=== PATIENT | female | born 1950 | race Caucasian/White ===

== ENCOUNTER 2022-04-09 12:10 | Outpatient (CLI) | payer MEDICARE, SELFPAY ==
--- NOTE | 2022-04-09 14:28 | W.ANESCHARGE ---
Anesthesia Charges Start Date/Time Anesthesia Start Date: 04/09/22 Anesthesia Start Time: 13:40 Stop Date/Time Anesthesia Stop Date: 04/09/22 Anesthesia Stop Time: 14:25 Summary Emergency: No Extremes of Age: Over 70-CPT 54347
--- NOTE | 2022-04-09 14:32 | W.ANESCHARGE ---
Anesthesia Charges Start Date/Time Anesthesia Start Date: 04/09/22 Anesthesia Start Time: 13:40 Stop Date/Time Anesthesia Stop Date: 04/09/22 Anesthesia Stop Time: 14:25 Summary Emergency: No Extremes of Age: Over 70-CPT 60679
== END 2022-04-09 12:11 | disposition home or self-care (01) ==
PROVIDERS: PCP Family Medicine; Visit Provider Surgery
DX: Z86.010 Personal history of colon polyps (principal); K63.5 Polyp of colon; K62.1 Rectal polyp; D17.5 Benign lipomatous neoplasm of intra-abdominal organs
CPT/HCPCS: 00811; 45385; 88305; 99100; J1200; J2250; J3010

== ENCOUNTER 2024-06-15 13:54 | Outpatient (CLI) | payer MEDICARE, SELFPAY ==
--- OUTSIDE RECORDS SUMMARY | 2024-06-15 14:00 | XMS_ITS | Clinical Summary ---
Author Organization [employer] [facility] Address [place], [place] [address] Care Team Providers Care Profiling Machine Set Up Operator Tool Name Role Phone Ger Escobar MD Primary Care Provider [phone] Active Problems Problem Noted Date Diagnosed Date Adenomatous colon polyp 02/02/2019 Overview (02/02/2019): Colonoscopy 01/2019 large cecal polyp, large ascending colon polyp unresectable by colonoscopy, biopsies show serrated adenoma recommend surgical resection of polyps. Patient will contact [facility] for general surgery referral, repeat colonoscopy to be determined by surgery after surgical excision of polyps. Social History Tobacco Use Types Packs/Day Years Used Date Smoking Tobacco: Never Assessed Sex and Gender Information Value Date Recorded Sex Assigned at Not on file Gender Identity Not on file Sexual Orientation Not on file Obstetrics History Plan of Treatment Health Maintenance Due Date Last Done Comments Tdap 1962 Depression screening for age 12+ 1963 BMI (ht and wt on same day) for age 18+ 1969 Hepatitis C screening for ag e 18-79 1969 Tetanus booster 1971 Lipids for age 45-75 01/09/1996 Mammogram for age 45-75 01/09/1996 Zoster (shingles) series for age 50+ (1 of 2) 2001 DEXA/DXA scan for age 65+ 01/09/2016 Medicare Wellness for age 65+ 01/09/2016 Pneumococcal series for age 65+ (1 of 1 - PCV) 01/09/2016 COVID-19 vaccine series (1 - 2023- season) 2024 Influenza for age 65+ 04/16/2024 Colonoscopy through age 75 01/30/202901/30, 01/30/2019, 01/30/2019, Additional history exists Procedures Procedure Name Priority Date/Time Associated Diagnosis Comments COLONOSCOPY SCREENING Routine 01/30/2019 12:00 PM CDT Positive colorectal cancer screening using Cologuard test from Last 3 Months or Most Recently Relevant to Health Maintenance Results * COLONOSCOPY SCREENING (01/30/2019 12:00 PM CDT) Jon Watson MD GI PROCEDURE ORD from Last 3 Months or Most Recently Relevant to Health Maintenance Care Teams Profiling Machine Set Up Operator Tool Relationship Specialty Start Date End Date Ger Escobar MD [address] [place] [address] PCP - General Family Practice 01/12/19
--- OUTSIDE RECORDS SUMMARY | 2024-06-15 14:00 | XMS_ITS | Clinical Summary ---
Author Organization [facility] Address [address] [place] [address] Care Team Providers Care Pv Design And Installation Technician Name Role Phone Ger Escobar MD Primary Care Provider Allergies No known active allergies Medications No known medications Active Problems Problem Noted Date Diagnosed Date Elevated glucose 03/23/2022 Other irritable bowel syndrome 03/23/2022 Mixed hyperlipidemia 03/23/2022 Tubular adenoma of colon 03/17/2022 Immunizations Name Administration Dates Next Due Pneumococcal Conj Vac, 13-valent (Prevnar) 11/23 Pneumococcal Vac, 23-valent, IM-SQ (Pneumovax) 0 01/22/2020 SARS-CoV-2, IM (COVID-19)(Pfizer)(Purple Label) 11/13/2020,10/22/2020 Tdap Vaccine, IM, (Adacel)(Boostrix) 11/03/2018 Family History Medical History Relation Name Comments Colon Cancer Father Possible colon but unsure and onset in 70's but unsure Thyroid Disease Mother Relation Name Status Comments Father Mother Social History Tobacco Use Types Packs/Day Years Used Date Smoking Tobacco: Former Smokeless Tobacco: Never Humiliation, Afraid, Rape, and Kick questionnair e Answer Date Recorded Within the last year, have y ou been afraid of your partner or ex-partner? No 04/18/2023 Within the last year, have y ou been humiliated or emotionally abused in other ways by your partner or ex-partner? No Within the last year, have y ou been kicked, hit, slapped, or otherwise physically hurt by your partner or ex-partner? No 04/18/2023 Within the last year, have y ou been raped or forced to have any kind of sexual activity by your partner or ex-partner? No 04/18/2023 Social Connection and Isolat ion Panel [NHANES] Answer Date Recorded In a typical week, how many times do you talk on the phone with family, friends, or neighbors? Twice a week 04/18/2023 How often do you get togethe r with friends or relatives? Once a week 04/18/2023 How often do you attend chur or pentecostalism services? More than 4 times per year 04/18/2023 Do you belong to any clubs o r organizations such as catholic groups, unions, fraternal or athletic groups, or school groups? Yes 04/18/2023 How often do you attend meet ings of the clubs or organizations you belong to? More than 4 times per year 04/18/2023 Are you , , di vorced, , never , or living with a partner? 04/18/2023 AUDIT-C Answer Date Recorded Q1: How often do you have a drink containing alc ohol? Monthly or less 04/18/2023 Average Number of Drinks Not on file 023 Q3: How often do you have si x or more drinks on one occasion? Never 04/18/2023 Overall Financial Resource Strain (CARDIA) Answe r Date Recorded How hard is it for you to pa y for the very basics like food, housing, medical care, and heating? Not hard at all 04/18/2023 [facility] Occupat ional Health - Occupational Stress Questionnaire Answer Date Recorded Do you feel stress - tense, restless, nervous, or anxious, or unable to sleep at night because your mind is troubled all the time - these days? Only a little 04/18/2023 Exercise Vital Sign Answer Date Recorde d On average, how many days pe r week do you engage in moderate to strenuous exercise (like a brisk walk)? 5 days 04/18/2023 On average, how many minutes do you engage in exercise at this level? 20 min 04/18/2023 Hunger Vital Sign Answer Date Recorded Within the past 12 months, y ou worried that your food would run out before you got the money to buy more. Never true 04/18/20 23 Within the past 12 months, t he food you bought just didn't last and you didn't have money to get more. Never true 04/18/2023 PRAPARE - Transportation Answer Date Re corded In the past 12 months, has l ack of transportation kept you from medical appointments or from getting medications? No 10/2022 In the past 12 months, has l ack of transportation kept you from meetings, work, or from getting things needed for daily living? No 04/18/2023 Housing Stability Vital Sign Answer Tom e Recorded In the last 12 months, was t here a time when you were not able to pay the mortgage or rent on time? No 04/18/2023 Number of Times Moved in the Last Year Not on fi le 04/18/2023 Homeless in the Last Year Not on file 2022 Housing Stability Answer Date Recorded In the last 12 months, was t here a time when you were not able to pay the mortgage or rent on time? No 04/18/2023 In the last 12 months, how many places have you lived? 1 04/18/2023 Number of Places Lived in the Last Year (Outpati ent) Not on file 04/18/2023 Number of Places Lived in the Last Year (Inpatie nt) Not on file 04/18/2023 In the last 12 months, was t here a time when you did not have a steady place to sleep or slept in a group home (including now)? No 04/18/2023 Depression (PHQ-9) Answer Date Recorded Last PHQ-9 Score Not on file 04/23/2024 Thoughts of self harm Not at all 04/23/2024 Intimate Partner Violence Answer Date R ecorded Are you in a relationship wh ere you are physically hurt, threatened and/or made to feel afraid? No 04/22/2023 Sex and Gender Information Value Date Recorded Sex Assigned at Not on file Gender Identity Not on file Sexual Orientation Not on file Last Filed Vital Signs Vital Sign Reading Time Taken Comments Blood Pressure 135/89 01/21/2024 2:50 PM CDT Pulse 79 01/21/2024 2:43 PM CDT Temperature 36.6 ??C (97.8 ??F) 01/21/2024 2:43 PM CD T Respiratory Rate - - Oxygen Saturation 95% 01/21/2024 2:43 PM CDT Inhaled Oxygen Concentration - - Weight 91.1 kg (200 lb 14.4 oz) 01/21/2024 2:43 PM CDT Height 160.5 cm (5' 3.19) 04/22/2023 1 1:19 AM CDT Body Mass Index 35.38 04/22/2023 11:19 AM CDT Plan of Treatment Health Maintenance Due Date Last Done Comments CT Colonography 01/09/1996 Fecal Immunochemical DNA Amber t (FIT-DNA) 01/09/1996 Fecal Immunochemical Test (FIT) 01/09/1996 Varicella Zoster Sequential (1 of 2) 2001 COVID-19 Vaccine (2023-2 5 season) 2024 11/13/2020, 10/22/2020 Influenza Vaccine (#1) 2024 Depression Screening 04/18/2024 04/18/2023 Medicare Annual Visit 04/22/2024 04/22/2023 , 10/16/2021 Mammogram Standard 01/31/2025 02/01/2024, 01/17/2024, 12/19/2018 Colonoscopy 04/09/2025 04/09/2022, 04/07/2021 Colorectal Cancer Screening 04/09/2025 Respiratory Syncytial Virus (RSV) Vaccine (1 - 1-dose 75+ series) 2026 Lipids Standard 04/22/2028 04/22/2023, 03/17/2022 DTaP/Tdap/Td Vaccines (2 - T d or Tdap) 11/03/2028 11/03/2018 Osteoporosis Screening-Femal e > 65 Years 12/19/2028 12/19/2018 Pneumococcal Vaccine (65+ Years) Completed 01/22/2020, 11/23/2018 HIB Vaccines Aged Out No longer eligi ble based on patient's age to complete this topic HPV Vaccines Aged Out No longer eligi ble based on patient's age to complete this topic Hepatitis A Vaccines Aged Out No long er eligible based on patient's age to complete this topic Hepatitis B Vaccines Aged Out No long er eligible based on patient's age to complete this topic Hepatitis C Testing Discontinued Meningococcal Vaccines Aged Out No lo nger eligible based on patient's age to complete this topic Procedures Procedure Name Priority Date/Time Associated Diagnosis Comments MAMMO DIAG UNIL LT 2D Routine 02/01/2024 1:03 PM CDT Abnormal mammogram LIPID PANEL Routine 04/22/2023 11:59 AM CDT Mixed hyperlipidemia from Last 3 Months or Most Recently Relevant to Health Maintenance Results * (ABNORMAL) MAMMO DIAG UNIL LT 2D (02/01/2024 1:03 PM CDT) Anatomical Region Laterality Modality Breast Left Mammography 02/01/2024 1:15 PM CDT Narrative 02/01/2024 1:17 PM CDT EXAM: PROBLEM SOLVING DIGITAL LEFT MAMMOGRAM 02/01/2024 1:00 PM CLINICAL: Grouped calcifications seen in the left breast on baseline screening examination. COMPARISON: Screening examination of 01/17/2024. TECHNIQUE: Magnification craniocaudal and true lateral views were obtained. FINDINGS: BREAST DENSITY: 2 - Scattered fibroglandular density Additional views confirm the presence of many calcifications of varying sizes in the line of the nipple centrally in the middle depth of the breast. No associated mass or architectural distortion. No layering of calcifications on the true lateral view.. IMPRESSION: No evidence of malignancy. FOLLOW-UP RECOMMENDATION: Stereotactic Breast Biopsy BIRADS: 4 - Suspicious Procedure Note Antonio Renteria MD - 02/01/2024 EXAM: PROBLEM SOLVING DIGITAL LEFT MAMMOGRAM 02/01/2024 1:00 PM CLINICAL: Grouped calcifications seen in the left breast on baselinescreening examination. COMPARISON: Screening examination of 01/17/2024. TECHNIQUE: Magnification craniocaudal and true lateral views wereobtained. FINDINGS: BREAST DENSITY: 2 - Scattered fibroglandular density Additional views confirm the presence of many calcifications of varyingsizes in the line of the nipple centrally in the middle depth of the breast. No associated massor architectural distortion. No layering of calcifications on the true lateral view.. IMPRESSION: No evidence of malignancy. FOLLOW-UP RECOMMENDATION: Stereotactic Breast Biopsy BIRADS: 4 - Suspicious Everardo Escobar DO RAD MAMMO * (ABNORMAL) LIPID PANEL (04/22/2023 11:59 AM CDT) Cholesterol 263(H) <200 mg/dL 04/22/2023 9:11 PM CDT [facility] Triglycerides 80 30 - 150 mg/dL 04/22/2023 9:11 PM CDT [facility] Cholesterol, LDL (Calculated) 181(H) 0 - 159 mg/dL 04/22/2023 9:11 PM CDT [facility] Cholesterol, HDL 66 >40 mg/dL 04/22/20 23 9:11 PM CDT [facility] Cholesterol, vLDL 16 mg/dL 023 9:11 PM CDT [facility] Fasting Status N/A 04/22/2023 9:11 PM CDT [facility] Blood VENOUS BLOOD / Unknown Venipuncture / Unknown 04/22/2023 11:59 AM CDT 04/22/2023 11:59 AM CDT Everardo Escobar DO LAB CHEMISTR Y ORDERABLES [facility] [address] [place] [address], from Last 3 Months or Most Recently Relevant to Health Maintenance Advance Directives Documents on File Type Date Recorded Patient Director Retail Brand Development Expl kp Health Care Directive-S 01/21/2024 8:54 AM Wojciech Buckner senConstchadwick Ovallecal Wing Advanced Directives 01/21/2024 8:56 AM Healthcare Agents on File Name Relationship Healthcare Agent Relationship Communication Wojciech Farley Brother Second Alternate Health Care Agent Jennifer Sharmin Maciej Daughter Health Care Agent [phone] (Mobile ) Care Teams Pv Design And Installation Technician Relationship Specialty Start Date End Date Ger Escobar MD [address] [place] [address] PCP - General Family Medicine 05/23/24 Additional Source Comments PLEASE NOTE: Replies to this message will not be received.[facility]
--- OUTSIDE RECORDS SUMMARY | 2024-06-15 14:00 | XMS_ITS | Referral Summary ---
Author Organization [facility] Address [address] [place] [address] Care Team Providers Care Security Guard Dispatcher Name Role Phone Ger Escobar MD Primary [...] Label) 11/13/2020,10/22/2020 Tdap Vaccine, IM, (Adacel)(Boostrix) 11/03/2018 Social History Tobacco Use Types Packs/Day Years [...] How often do you attend chur or baptism services? More than 4 times per year 04/18/2023 Do you belong to any clubs o r organizations such as zoroastrianism groups, unions, fraternal or athletic groups, or [...] and heating? Not hard at all 04/18/2023 [facility] Occupat ional Health - Occupational Stress [...] place to sleep or slept in a half-way (including now)? No 04/18/2023 Depression (PHQ-9) Answer [...] Mass Index 35.38 04/22/2023 11:19 AM CDT Functional Status Functional Status Response Date of Assess ment Are you deaf or do you have serious difficulty h earing? No 04/18/2023 Are you blind or do you have serious difficulty seeing, even when wearing glasses? No 04/18/2023 Do you have serious difficul ty walking or climbing stairs? No 04/18/2023 Do you have difficulty dressing or bathing? No 04/18/2023 Do you have difficulty doing errands alone such as visiting a doctor's office or shopping because of a physical, mental, or emotional condition? No 04/18/2023 Cognitive Status Response Date of Assessm ent Do you have trouble concentr ating, remembering, or making decisions because of a physical, mental, or emotional condition? No 04/18/2023 Plan of Treatment Not on file Procedures Procedure Name Priority Date/Time Associated Diagnosis [...] 263(H) <200 mg/dL 04/22/2023 9:11 PM CDT [facility] Triglycerides 80 30 - 150 mg/dL 04/22/2023 9:[address] [facility] Cholesterol, LDL (Calculated) 181(H) 0 - 159 mg/dL 04/22/2023 9:11 PM CDT [facility] Cholesterol, HDL 66 >40 mg/dL 04/22/20 23 9:11 PM CDT [facility] Cholesterol, vLDL 16 mg/dL 023 9:11 PM T [facility] Fasting Status N/A 04/22/2023 9:11 PM CDT [facility] Blood VENOUS BLOOD / Unknown Venipuncture / Unknown 04/22/2023 11:59 AM CDT 04/22/2023 11:59 AM CDT Everardo Junior Shawn DO LAB CHEMISTR Y ORDERABLES [facility] [address] [place] [address], from Last 3 Months or Most Recently Relevant to Health Maintenance Advance Directives Documents on File Type Date Recorded Patient Scale Installer Expl anation Health Care Directive-S 01/21/2024 8:54 AM Wojciech Buckner senConstchadwick Wing Advanced Directives 01/21/2024 8:56 AM Healthcare Agents on File Name Relationship Healthcare Agent Relationship Communication Wojciech Farley Brother Second Alternate Health Care Agent Jenniferchadwick Wing Daughter Health Care Agent [phone] (Mobile ) Care Teams Security Guard Dispatcher Relationship Specialty Start Date End Date Ger Escobar MD [address] [place] [address] PCP - General Family Medicine 05/23/24 Additional Source Comments PLEASE NOTE: Replies to this message will not be received.[facility]
== END 2024-06-15 13:55 | disposition home or self-care (01) ==
PROVIDERS: PCP Family Medicine; Visit Provider Family Medicine
DX: E78.5 Hyperlipidemia, unspecified (principal); R73.09 Other abnormal glucose
CPT/HCPCS: 80061; 82947

== ENCOUNTER 2025-05-10 10:02 | Outpatient (CLI) | payer MEDICARE, OTHER, SELFPAY ==
--- NOTE | 2025-05-10 11:40 | P.ANES_ITS ---
Anesthesia Charges Start Date/Time Anesthesia Start Date: 05/10/25 Anesthesia Start Time: 11:00 Stop Date/Time Anesthesia Stop Date: 05/10/25 Anesthesia Stop Time: 11:42 Summary Extremes of Age - Over 70 or under 1: REPORT MANAGER Coding CPT Codes CPT Codes: DARIENS LWR INTST NDSC NOS - 35692 ([id number]) P2 - PATIENT W/MILD SYST DISEASE, QX - REPORT MANAGER SVC W/ MD MED DIRECTION, QY - MEDICALLY DIRECTED REPORT MANAGER Additional Codes: Summary - Extremes of Age - Over 70 or under 1: REPORT MANAGER ([id number])
--- NOTE | 2025-05-10 11:40 | W.ANESCHARGE ---
Anesthesia Charges Start Date/Time Anesthesia Start Date: 05/10/25 Anesthesia Start Time: 11:00 Stop Date/Time Anesthesia Stop Date: 05/10/25 Anesthesia Stop Time: 11:42 Summary Extremes of Age - Over 70 or under 1: BONDED STRUCTURES REPAIRER Coding CPT Codes CPT Codes: DARIENS LWR INTST NDSC NOS - 41695 ([id number]) P2 - PATIENT W/MILD SYST DISEASE, QX - BONDED STRUCTURES REPAIRER SVC W/ MD MED DIRECTION, QY - MEDICALLY DIRECTED BONDED STRUCTURES REPAIRER Additional Codes: Summary - Extremes of Age - Over 70 or under 1: BONDED STRUCTURES REPAIRER ([id number])
--- NOTE | 2025-05-10 12:29 | P.ANES_ITS ---
Anesthesia Charges Start Date/Time Anesthesia Start Date: 05/10/25 Anesthesia Start Time: 11:00 Stop Date/Time Anesthesia Stop Date: 05/10/25 Anesthesia Stop Time: 11:42 Summary Extremes of Age - Over 70 or under 1: MDA Coding CPT Codes CPT Codes: MICHAELLE LWR INTST NDSC NOS - 79334 ([id number]) P2 - PATIENT W/MILD SYST DISEASE, QX - DISK AND TAPE MACHINE TENDER SVC W/ MD MED DIRECTION, QK - SODA FOUNTAIN OPERATOR 2-4 CNCRNT ANES PROC Additional Codes: Summary - Extremes of Age - Over 70 or under 1: MDA ([id number])
--- NOTE | 2025-05-10 12:29 | W.ANESCHARGE ---
Anesthesia Charges Start Date/Time Anesthesia Start Date: 05/10/25 Anesthesia Start Time: 11:00 Stop Date/Time Anesthesia Stop Date: 05/10/25 Anesthesia Stop Time: 11:42 Summary Extremes of Age - Over 70 or under 1: MDA Coding CPT Codes CPT Codes: MICHAELLE LWR INTST NDSC NOS - 38398 ([id number]) P2 - PATIENT W/MILD SYST DISEASE, QX - ROTARY PUMP OPERATOR SVC W/ MD MED DIRECTION, QK - MIX HOUSE OPERATOR 2-4 CNCRNT ANES PROC Additional Codes: Summary - Extremes of Age - Over 70 or under 1: MDA ([id number])
== END 2025-05-10 10:03 | disposition home or self-care (01) ==
LOC: OP CLINIC 10:05
PROVIDERS: PCP Family Medicine; Visit Provider Surgery
DX: Z12.11 Encounter for screening for malignant neoplasm of colon (principal); Z86.0100 Personal history of colon polyps, unspecified; D12.2 Benign neoplasm of ascending colon; D12.3 Benign neoplasm of transverse colon; D17.5 Benign lipomatous neoplasm of intra-abdominal organs; K64.8 Other hemorrhoids; K63.5 Polyp of colon; K62.1 Rectal polyp
CPT/HCPCS: 00811; 45385; 88305; 99100; J2704

== ENCOUNTER 2025-07-04 13:25 | Outpatient (CLI) | payer MEDICARE, OTHER, SELFPAY | END 2025-07-04 13:26 | disposition home or self-care (01) | PROVIDERS: PCP Family Medicine; Visit Provider Family Medicine | DX: E78.5 Hyperlipidemia, unspecified (principal) | CPT/HCPCS: 80053; 80061 ==